=== PATIENT | male | born 1975 | race Caucasian/White ===

== ENCOUNTER 2020-05-30 11:11 | Emergency (ER) | payer SELFPAY ==
[2020-05-30 13:03] LABS: Absolute Lymphocytes (CBC) 1.6 K/uL (0.7-4.9); Basophils % 1.3 % (0-1.3); Hematocrit 43.9 % (39.6-49.0); Lymphocytes % 27.7 % (15.3-44.8); MPV 8.8 fL (7.6-11.3); RBC Red Blood Cell Count 4.72 M/uL (4.33-5.43)
[2020-05-30 14:50] LABS: Potassium 3.6 mmol/L (3.5-5.1)
--- NOTE | 2020-05-30 15:04 | ER ---
Nurse's Notes [facility] Name: Christopher Acharya Age: 44 yrs Sex: Male : 1975 Arrival Date: 05/30/2020 Time: 11:13 Bed 24 Private MD: Diagnosis: Viral infection, unspecified;Diarrhea, unspecified Presentation: 05/30 11:21 Chief complaint: Patient states: N/V/D, subjective fever since Saturday. Coronavirus ll1 screen: Client denies travel out of the [place] in the last 14 days. At this time, the client does not indicate any symptoms associated with coronavirus-19. Ebola Screen: Patient denies travel to an Ebola-affected area in the 21 days before illness onset. Initial Sepsis Screen: Does the patient meet any 2 criteria? No. Patient's initial sepsis screen is negative. Risk Assessment: Do you want to hurt yourself or someone else? Patient reports no desire to harm self or others. Onset of symptoms was April 28, 2020. 11:21 Method Of Arrival: Ambulatory ll1 11:21 Acuity: ANTHONY 3 ll1 12:56 Initial Sepsis Screen: Does the patient have a suspected source of infection? No. ca1 Patient's initial sepsis screen is negative. Historical: - Allergies: 11:23 No Known Allergies; ll1 - PSHx: 11:23 shoulder sx; Right leg sx x 3; ll1 - Immunization history:: Flu vaccine is not up to date. - Social history:: Smoking status: Patient reports the use of cigarette tobacco products, smokes one-half pack cigarettes per day. Screenin:06 Abuse screen: Denies threats or abuse. Denies injuries from another. Nutritional ca1 screening: No deficits noted. Tuberculosis screening: No symptoms or risk factors identified. Fall Risk IV access (20 points). Assessment: 12:06 General: Appears in no apparent distress. comfortable, Behavior is calm, cooperative, ca1 appropriate for age, Reports fever for 2-3 days. General: Reports feeling ill for 2-3 days, fatigue for 2-3 days. Pain: Complains of pain in low back area Pain began 2-3 days ago. Neuro: Level of Consciousness is awake, alert, obeys commands, Oriented to person, place, time, situation. Cardiovascular: Heart tones S1 S2 present Capillary refill < 3 seconds Patient's skin is warm and dry. Respiratory: Reports cough that is Airway is patent Respiratory effort is even, unlabored, Respiratory pattern is regular, symmetrical, Breath sounds are clear bilaterally. GI: Abdomen is flat, non-distended, Bowel sounds present X 4 quads. Abd is soft and non tender X 4 quads. Reports diarrhea, nausea, vomiting. : No signs and/or symptoms were reported regarding the genitourinary system. EENT: No signs and/or symptoms were reported regarding the EENT system. Derm: Skin is intact, is healthy with good turgor, Skin is pink, warm \T\ dry. Musculoskeletal: Circulation, motion, and sensation intact. Capillary refill < 3 seconds. 12:57 Reassessment: Patient appears in no apparent distress at this time. Patient and/or ca1 family updated on plan of care and expected duration. Pain level reassessed. Patient is alert, oriented x 3, equal unlabored respirations, skin warm/dry/pink. 13:41 Reassessment: Patient appears in no apparent distress at this time. Patient and/or ca1 family updated on plan of care and expected duration. Pain level reassessed. Patient is alert, oriented x 3, equal unlabored respirations, skin warm/dry/pink. 14:40 Reassessment: Patient appears in no apparent distress at this time. Patient and/or ca1 family updated on plan of care and expected duration. Pain level reassessed. Patient is alert, oriented x 3, equal unlabored respirations, skin warm/dry/pink. 15:30 Reassessment: Patient appears in no apparent distress at this time. Patient is alert, ca1 oriented x 3, equal unlabored respirations, skin warm/dry/pink. Vital Signs: 11:21 BP 135 / 94; Pulse 62; Resp 18; Temp 98.2; Pulse Ox 98% ; Weight 83.01 kg; Height 6 ft. ll1 0 in. (182.88 cm); Pain 2/10; 12:49 BP 136 / 86; Pulse 61; Resp 15 S; Pulse Ox 98% on R/A; ca1 13:41 BP 135 / 94; Pulse 51; Resp 15 S; Pulse Ox 96% on R/A; ca1 15:02 BP 131 / 93; Pulse 54; Resp 15; Pulse Ox 99% on R/A; mt 11:21 Body Mass Index 24.82 (83.01 kg, 182.88 cm) ll1 ED Course: 11:13 Patient arrived in ED. ds1 11:22 Triage completed. ll1 11:23 Arm band placed on. ll1 11:32 Theresa Loyd FNP-C [facility]. kb 11:32 Zia Cueto MD is Attending Physician. kb 12:06 Patient has correct armband on for positive identification. Placed in gown. Bed in low ca1 position. Call light in reach. Side rails up X 1. Pulse ox on. NIBP on. Warm blanket given. 12:15 Ilene Thomas, DEYVI is Primary Nurse. ca1 12:31 No provider procedures requiring assistance completed. Initial lab(s) drawn, by me, ca1 sent to lab. Inserted saline lock: 20 gauge in right antecubital area, using aseptic technique. Blood collected. 12:33 Flu Sent. ca1 13:17 Lab(s) recollected, by me, sent to lab. ca1 14:00 basic lab recollect drawn from [facility] IV, blood return good, patient tolerated well. mt 15:30 Covid swab sent to lab. ca1 15:30 IV discontinued, intact, bleeding controlled, No redness/swelling at site. Pressure ca1 dressing applied. Administered Medications: No medications were administered Outcome: 15:04 Discharge ordered by . kb 15:30 Discharged to home ambulatory. ca1 15:30 Condition: stable 15:30 Discharge instructions given to patient, Instructed on discharge instructions, follow up and referral plans. Demonstrated understanding of instructions, follow-up care. 15:31 Patient left the ED. ca1 Addendum: 06/01/2020 13:35 Addendum: COVID-19 Result: Negative result given to RN to notify pt. Attempted to i w contact pt regarding negative COVID-19 swab results. Left voice mail. 14:51 Addendum: COVID-19 Result: Negative result given to RN to notify pt. Notified pt of i w negative COVID 19 swab results. Pt advised that even with a negative test result they should remain in isolation until symptom free for 3 days without medication. Pt also advised to return to the ED for worsening symptoms. Signatures: Theresa Loyd FNP-C [employer]RAF[employer] SUR[employer]Y-Shawanda Wong ds1 Virginia Mullins RN RN iw Thompson, [place] mo Ilene Thomas RN RN ca1 Wang Morris RN RN ll1 Corrections: (The following items were deleted from the chart) 05/30 14:03 14:00 basic lab recollect drawn [facility]
--- NOTE | 2020-05-30 15:05 | EDPHYS ---
Physician Documentation [facility] Name: Christopher Acharya Age: 44 yrs Sex: Male : 1975 Arrival Date: 05/30/2020 Time: 11:13 Bed 24 Private MD: ED Physician Zia Cueto HPI: 05/30 15:12 This 44 yrs old Male presents to ER via Ambulatory with complaints of Fever, kb Diarrhea, Chills. 15:12 The patient presents to the emergency department with diarrhea. Onset: The kb symptoms/episode began/occurred 2 day(s) ago. Possible causes: unknown. The symptoms are aggravated by nothing. The symptoms are alleviated by nothing. Associated signs and symptoms: Pertinent positives: diarrhea, fever, chills, body aches. Severity of symptoms: At their worst the symptoms were moderate in the emergency department the symptoms are unchanged. The patient has not experienced similar symptoms in the past. The patient has not recently seen a physician. Historical: - Allergies: 11:23 No Known Allergies; ll1 - PSHx: 11:23 shoulder sx; Right leg sx x 3; ll1 - Immunization history:: Flu vaccine is not up to date. - Social history:: Smoking status: Patient reports the use of cigarette tobacco products, smokes one-half pack cigarettes per day. ROS: 15:11 Cardiovascular: Negative for chest pain, palpitations, and edema, Respiratory: Negative kb for shortness of breath, cough, wheezing, and pleuritic chest pain, Back: Negative for injury and pain, MS/Extremity: Negative for injury and deformity, Skin: Negative for injury, rash, and discoloration, Neuro: Negative for headache, weakness, numbness, tingling, and seizure. 15:11 Constitutional: Positive for body aches, chills, fever, malaise. 15:11 Abdomen/GI: Positive for diarrhea, Negative for abdominal pain, nausea and vomiting. Exam: 15:11 Constitutional: This is a well developed, well nourished patient who is awake, alert, kb and in no acute distress. Head/Face: Normocephalic, atraumatic. Chest/axilla: Normal chest wall appearance and motion. Nontender with no deformity. No lesions are appreciated. Cardiovascular: Regular rate and rhythm with a normal S1 and S2. No gallops, murmurs, or rubs. Normal PMI, no JVD. No pulse deficits. Respiratory: Lungs have equal breath sounds bilaterally, clear to auscultation and percussion. No rales, rhonchi or wheezes noted. No increased work of breathing, no retractions or nasal flaring. Abdomen/GI: Soft, non-tender, with normal bowel sounds. No distension or tympany. No guarding or rebound. No evidence of tenderness throughout. Skin: Warm, dry with normal turgor. Normal color with no rashes, no lesions, and no evidence of cellulitis. MS/ Extremity: Pulses equal, no cyanosis. Neurovascular intact. Full, normal range of motion. Neuro: Awake and alert, GCS 15, oriented to person, place, time, and situation. Cranial nerves II-XII grossly intact. Motor strength 5/5 in all extremities. Sensory grossly intact. Cerebellar exam normal. Normal gait. Vital Signs: 11:21 BP 135 / 94; Pulse 62; Resp 18; Temp 98.2; Pulse Ox 98% ; Weight 83.01 kg; Height 6 ft. ll1 0 in. (182.88 cm); Pain 2/10; 12:49 BP 136 / 86; Pulse 61; Resp 15 S; Pulse Ox 98% on R/A; ca1 13:41 BP 135 / 94; Pulse 51; Resp 15 S; Pulse Ox 96% on R/A; ca1 15:02 BP 131 / 93; Pulse 54; Resp 15; Pulse Ox 99% on R/A; mt 11:21 Body Mass Index 24.82 (83.01 kg, 182.88 cm) ll1 MDM: 12:06 Patient medically screened. kb 15:11 Data reviewed: vital signs, nurses notes. Data interpreted: Pulse oximetry: on room air kb is 99 %. Interpretation: normal. Counseling: I had a detailed discussion with the patient and/or guardian regarding: the historical points, exam findings, and any diagnostic results supporting the discharge/admit diagnosis, lab results, radiology results, the need for outpatient follow up, a family practitioner, to return to the emergency department if symptoms worsen or persist or if there are any questions or concerns that arise at home. 05/30 12:14 Order name: Basic Metabolic Panel; Complete Time: 15:03 kb 05/30 12:14 Order name: CBC with Diff; Complete Time: 13:13 kb 05/30 12:14 Order name: IV Saline Lock; Complete Time: 12:33 kb 05/30 12:14 Order name: Labs collected and sent; Complete Time: 12:33 kb 05/30 12:14 Order name: Flu; Complete Time: 13:02 kb 05/30 15:03 Order name: COVID-19 kb 05/30 13:07 Order name: Labs - recollect needed: recollect c7; Complete Time: 13:17 bd Administered Medications: No medications were administered Disposition: 17:58 Co-signature as Attending Physician, Zia Cueto MD. rn Disposition: 05/30/20 15:04 Discharged to Home. Impression: Viral infection, unspecified, Diarrhea, unspecified. - Condition is Stable. - Discharge Instructions: Food Choices to Help Relieve Diarrhea, Adult, Diarrhea, Adult, [id number], COVID-19. - Medication Reconciliation Form, Thank You Letter, Antibiotic Education, Prescription Opioid Use, Work release form form. - Follow up: Emergency Department; When: As needed; Reason: Worsening of condition. Follow up: Private Physician; When: 2 - 3 days; Reason: Recheck today's complaints, Continuance of care, Re-evaluation by your physician. Signatures: Dispatcher [employer] EDMS Theresa Loyd, BRIDGE TEACHER-C BRIDGE TEACHER-Ckb Rebeca Pascual Roman, MD MD rn Acob, Ilene, RN RN ca1 Wang Morris RN RN ll1 Corrections: (The following items were deleted from the chart) 15:31 15:04 05/30/2020 15:04 Discharged to Home. Impression: Viral infection, unspecified; ca1 Diarrhea, unspecified. Condition is Stable. Forms are Medication Reconciliation Form, Thank You Letter, Antibiotic Education, Prescription Opioid Use. Follow up: Emergency Department; When: As needed; Reason: Worsening of condition. Follow up: Private Physician; When: 2 - 3 days; Reason: Recheck today's complaints, Continuance of care, Re-evaluation by your physician. kb
[2020-05-30 16:15] VITALS: TEMP 98.2
[2020-05-30 16:19] VITALS: BP 131/93; O2SAT 99
== END 2020-05-30 15:31 | disposition home or self-care (01) ==
LOC: ER 11:11
DX: B34.9 Viral infection, unspecified (principal); Z20.828 Contact with and (suspected) exposure to other viral communicable diseases; R19.7 Diarrhea, unspecified; F17.210 Nicotine dependence, cigarettes, uncomplicated
CPT/HCPCS: 36415; 80048; 85025; 87804; 99284; U0002